=== PATIENT | female | born 1975 | race Asian ===

== ENCOUNTER 2017-06-21 00:22 | Inpatient (IN) | payer SELFPAY ==
[~2017-06-21] VITALS: Ht 168 cm; Wt 67.6 kg
[2017-06-21 01:59] LABS: BASOPHILS % (AUTO) 0.2 % (0.0-2.0); EOSINOPHILS # (AUTO) 0.1 K/uL (0.0-0.4); EOSINOPHILS % (AUTO) 0.9 % (0.0-4.0); HEMATOCRIT 36.1 % (36-48); HEMOGLOBIN 12.2 g/dL (12.0-16.0); LYMPHOCYTES # (AUTO) 1.6 K/uL (1.0-5.5); LYMPHOCYTES % (AUTO) 16.5 % (20.5-51.5); MEAN CORPUSCULAR HEMOGLOBIN 29 pg (27-31); MEAN CORPUSCULAR HGB CONC 34 % (32-36); MEAN CORPUSCULAR VOLUME 86 fL (79.0-98.0); MONOCYTES # (AUTO) 0.7 K/uL (0.0-1.0); MONOCYTES % (AUTO) 7.2 % (1.7-9.3); NEUTROPHILS # (AUTO) 7.5 K/uL (1.8-7.7); NEUTROPHILS % (AUTO) 75.2 % (40.0-70.0); PLATELET COUNT (AUTO) 135 K/uL (130-430); RED BLOOD CELL COUNT(AUTO) 4.19 MIL/uL (4.2-6.2); RED CELL DISTRIBUTION WIDTH 13.5 % (9.0-15.0); WHITE BLOOD COUNT (AUTO) 9.9 K/uL (4.8-10.8)
[2017-06-21 02:07] LABS: CALCIUM 8.9 mg/dL (8.4-11.0); CREATININE 0.83 mg/dL (0.55-1.30); POTASSIUM 4.1 mmol/L (3.5-5.1)
[2017-06-21 02:12] LABS: ALBUMIN 2.8 g/dL (3.4-4.8); TOTAL BILIRUBIN 0.2 mg/dL (0.0-1.0)
[2017-06-21 03:24] VITALS: BP_SYST 140
[2017-06-21] MEDS ORDERED: CEFAZOLIN 2 GM IVPB PREMIX 50 ML IV ONE (04:00)
[2017-06-21] MEDS ORDERED: OXYTOCIN/NORMAL SALINE 1,000 ML IV ONE ×2 (06:13→08:01)
[2017-06-21] MEDS ORDERED: ANUSOL 1 EA SUPP.RECT (PREPARATION H) RC PRN (06:15)
[2017-06-21] MEDS ORDERED: MAGNESIUM SULFATE IN WATER 100 ML IV ONE ×2 (06:15→06:16)
[2017-06-21] MEDS ORDERED: LANOLIN 7 GM OINT. TP PRN (06:15)
[2017-06-21] MEDS ORDERED: OXYCODONE/ACETAMINOPHEN 5-325 TABLET PO PRN ×2 (06:15)
[2017-06-21] MEDS ORDERED: MEASLES,MUMPS&RUBELLA VACC/PF 12500 UNIT/0.5 ML VIAL SUBQ PRN (06:15)
[2017-06-21] MEDS ORDERED: HYDROcodone/ACETAMIN 5-325 MG TAB (NORCO/ VICODIN) PO PRN (06:15)
[2017-06-21] MEDS ORDERED: LR 1,000 ML IV ONE (06:55)
[2017-06-21] MEDS ORDERED: NALBUPHINE HCL 10 MG/ML AMP IVP PRN (07:00)
[2017-06-21] MEDS ORDERED: NALOXONE HCL 0.4 MG/ML AMP (NARCAN) IVP PRN (07:00)
[2017-06-21] MEDS ORDERED: DIPHENHYDRAMINE INJ 50 MG/ML VIAL IVP PRN (07:00)
[2017-06-21] MEDS ORDERED: KETOROLAC TROMETHAMINE 30 MG VIAL IM PRN (07:00)
[2017-06-21] MEDS ORDERED: ONDANSETRON HCL 4 MG/2 ML VIAL IVP PRN ×2 (07:00)
[2017-06-21] MEDS ORDERED: ePHEDrine sulfate 50 MG/ML VIAL IVP PRN (07:00)
[2017-06-21] MEDS ORDERED: fentaNYL CITRATE/PF 100 MCG/2 ML AMP IVP PRN (07:00)
[2017-06-21 07:20] VITALS: BP_SYST 126
[2017-06-21] MEDS ORDERED: hydrALAZINE HCL 20 MG/ML VIAL IVP ONE (09:15)
[2017-06-21] MEDS ORDERED: LR 1,000 ML IV.SOLN IV ONE (09:18)
[2017-06-21] MEDS ORDERED: METOCLOPRAMIDE HCL 10 MG/2 ML VIAL IVP ONE (09:18)
[2017-06-21] MEDS ORDERED: DEXAMETHASONE SOD PHOSPHATE 4 MG/ML VIAL IVP ONE (09:18)
[2017-06-21] MEDS ORDERED: fentaNYL CITRATE/PF 100 MCG/2 ML AMP IVP ONE (09:18)
[2017-06-21] MEDS ORDERED: NS IRRIG SOLN 1000 ML IR ONE (09:18)
[2017-06-21] MEDS ORDERED: hydrALAZINE HCL 20 MG/ML VIAL ONE (09:19)
[2017-06-21] MEDS ORDERED: MAGNESIUM SULFATE IN WATER 500 ML IV ONE (09:34)
[2017-06-21 10:18] LABS: BILIRUBIN,URINE NEGATIVE (NEGATIVE); CLARITY/URINE CLEAR (CLEAR); COLOR,URINE YELLOW (YELLOW); GLUCOSE,URINE NEGATIVE (NEGATIVE); KETONES,URINE NEGATIVE (NEGATIVE); LEUKOCYTE ESTERASE ,URINE TRACE (NEGATIVE); NITRITE, URINE NEGATIVE (NEGATIVE); PH,URINE 6.5 (5.0-8.0); PROTEIN URINE TRACE (NEGATIVE); UROBILINOGEN,URINE 0.2 (0.2-1.0)
[2017-06-21 10:27] LABS: BLOOD, URINE TRACE (NEGATIVE)
[2017-06-21] MEDS ORDERED: MORPHINE SULFATE 10MG/10ML PF AMP EP ONE (10:35)
[2017-06-21 10:58] LABS: BACTERIA,URINE RARE /HPF (None Seen)
[2017-06-21] MEDS: CEFAZOLIN 1 GM IVPB PREMIX 50 ML IV SCH ×2 (14:20→20:30)
[2017-06-21] MEDS: MAGNESIUM SULFATE IN WATER 500 ML IV PRN (17:53)
[2017-06-21] MEDS ORDERED: TEMAZEPAM 15 MG CAPSULE PO PRN (21:00)
[2017-06-22] MEDS: CEFAZOLIN 1 GM IVPB PREMIX 50 ML IV SCH (02:30)
[2017-06-22] MEDS: MAGNESIUM SULFATE IN WATER 500 ML IV PRN (04:30)
[2017-06-22] MEDS: IBUPROFEN 600 MG TABLET PO SCH ×4 (06:09→23:18)
[2017-06-22] MEDS: LEVOTHYROXINE SODIUM 0.025 MG TABLET PO SCH (06:20)
[2017-06-22 06:47] LABS: BASOPHILS % (AUTO) 0.1 % (0.0-2.0); HEMATOCRIT 33.8 % (36-48); HEMOGLOBIN 11.4 g/dL (12.0-16.0); LYMPHOCYTES # (AUTO) 1.8 K/uL (1.0-5.5); LYMPHOCYTES % (AUTO) 11.4 % (20.5-51.5); MEAN CORPUSCULAR HEMOGLOBIN 29 pg (27-31); MEAN CORPUSCULAR HGB CONC 34 % (32-36); MEAN CORPUSCULAR VOLUME 86 fL (79.0-98.0); MONOCYTES # (AUTO) 0.8 K/uL (0.0-1.0); MONOCYTES % (AUTO) 4.9 % (1.7-9.3); NEUTROPHILS % (AUTO) 83.6 % (40.0-70.0); PLATELET COUNT (AUTO) 146 K/uL (130-430); RED BLOOD CELL COUNT(AUTO) 3.93 MIL/uL (4.2-6.2); RED CELL DISTRIBUTION WIDTH 13.1 % (9.0-15.0)
[2017-06-22 07:02] LABS: WHITE BLOOD COUNT (AUTO) 15.6 K/uL (4.8-10.8)
[2017-06-22] MEDS: DOCUSATE SODIUM 100 MG CAPSULE PO PRN ×2 (12:22→23:17)
[2017-06-22] MEDS: SIMETHICONE 80 MG TAB.CHEW PO PRN ×2 (12:22→23:17)
[2017-06-23] MEDS ORDERED: IBUPROFEN 600 MG TABLET ONE (05:57)
[2017-06-23] MEDS: IBUPROFEN 600 MG TABLET PO SCH ×3 (06:02→18:53)
[2017-06-23] MEDS: SIMETHICONE 80 MG TAB.CHEW PO PRN (09:16)
[2017-06-23] MEDS: DOCUSATE SODIUM 100 MG CAPSULE PO PRN ×2 (09:16→23:54)
[2017-06-23] MEDS: LABETALOL HCL 100 MG TABLET PO SCH (18:57)
[2017-06-23] MEDS ORDERED: LABETALOL HCL 100 MG TABLET ONE (19:00)
[2017-06-24] MEDS: LEVOTHYROXINE SODIUM 0.025 MG TABLET PO SCH (06:00)
[2017-06-24] MEDS: IBUPROFEN 600 MG TABLET PO SCH ×3 (06:00→17:56)
[2017-06-24] MEDS: LABETALOL HCL 100 MG TABLET PO SCH ×2 (06:30→17:56)
[2017-06-24] MEDS: DOCUSATE SODIUM 100 MG CAPSULE PO PRN (12:43)
[2017-06-24] MEDS: SIMETHICONE 80 MG TAB.CHEW PO PRN (12:43)
== END 2017-06-24 19:30 | disposition home or self-care (01) | DRG 766 ==
LOC: SPU 00:22 → OBSVTOIN 01:16
PROVIDERS: ADMIT Obstetrics & Gynecology; ATTEND Obstetrics & Gynecology
PROC: 3E0134Z Introduction of Serum, Toxoid and Vaccine into Subcutaneous Tissue, Percutaneous Approach (ICD-10-PCS; 2017-06-21)
PROC: 10D00Z1 Extraction of Products of Conception, Low, Open Approach (ICD-10-PCS; principal; 2017-06-21 06:00)
DX: O13.4 Gestational [pregnancy-induced] hypertension without significant proteinuria, complicating childbirth (principal); O24.429 Gestational diabetes mellitus in childbirth, unspecified control; E03.9 Hypothyroidism, unspecified; O99.284 Endocrine, nutritional and metabolic diseases complicating childbirth; Z3A.39 39 weeks gestation of pregnancy; Z37.0 Single live birth; O09.523 Supervision of elderly multigravida, third trimester; Z23 Encounter for immunization
CPT/HCPCS: 36415; 80053; 81000-TC; 85025; 86592; 86886; 86900; 86901; 94760; G0378; J0360; J0690; J1100; J1885; J2274; J2590; J2765; J3010; J3475; J7120